=== PATIENT | female | born 1995 | race Caucasian/White ===

== ENCOUNTER 2018-07-06 09:21 | Emergency (ER) | payer MEDICAID ==
[~2018-07-06] VITALS: Ht 152.4 cm; Wt 44.0 kg
[2018-07-06 09:29] VITALS: Ht 152.4 cm; Wt 44.0 kg
[2018-07-06 10:41] VITALS: BP 95/50
== END 2018-07-06 12:00 | disposition home or self-care (01) ==
LOC: ED 09:21
DX: E16.2 Hypoglycemia, unspecified (principal); R42 Dizziness and giddiness
CPT/HCPCS: 82962